=== PATIENT | female | born 1960 | race Caucasian/White ===

== ENCOUNTER 2016-04-26 10:20 | Outpatient (CLI) | payer SELFPAY | END 2016-04-26 10:21 | disposition home or self-care (01) | DX: Z11.1 Encounter for screening for respiratory tuberculosis (principal) ==

== ENCOUNTER 2020-01-24 17:36 | Outpatient (CLI) | payer OTHER ==
--- NOTE | 2020-01-24 17:38 | XRAY Report ---
PROCEDURE: Wrist 4 View LT INDICATIONS: OTHER TENOSYNOVITIS OF WRIST TECHNIQUE: 4 views of the wrist were acquired. COMPARISON: None FINDINGS: Bones: No fractures or dislocations. Mild periarticular osteophyte formation at the first carpal-met acarpal joint. No suspicious bony lesions. Scaphoid view: Negative Soft tissues: No suspicious soft tissue calcifications. IMPRESSION: First carpal metacarpal joint osteoarthritis. No acute fracture. No osseous lesion. If symptoms and/o r clinical suspicion for pathology continue, further assessment with repeat plain films, or advanced imaging (e.g., CT, MRI, or bone scan) is recommended for further assessment. Reviewed by: Payton Biswas MD on 01/24/2020 4:37 PM [facility] Approved by: Payton Biswas MD on 01/24/2020 4:37 PM [facility] Station ID: [id number]
== END 2020-01-24 23:59 | disposition home or self-care (01) ==
LOC: DI.N 17:36
PROVIDERS: ATTEND Family Medicine
DX: M65.832 Other synovitis and tenosynovitis, left forearm (principal); M19.032 Primary osteoarthritis, left wrist

== ENCOUNTER 2023-10-24 15:10 | Outpatient (CLI) | payer BC ==
--- NOTE | 2023-10-26 13:24 | XRAY Report ---
PROCEDURE: Wrist 1-2V LT INDICATIONS: OTH SPECIFIED SPRAIN OF LT WRIST TECHNIQUE: 3 views of the wrist were acquired. COMPARISON: None. FINDINGS: Bones: No fractures or dislocations. No suspicious bony lesions. Moderate first CMC joint space n arrowing with particular osteophyte formation. Soft tissues: No suspicious soft tissue calcifications or masses. IMPRESSION: No acute bony abnormality. Moderate first CMC joint degeneration. Reviewed by: XAVI Griggs on 10/26/2023 1:22 PM PDT Approved by: Xiao Peterson MD on 10/26/2023 1:22 PM PDT Station ID: [id number]
== END 2023-10-24 15:11 | disposition home or self-care (01) ==
LOC: DI 15:10
PROVIDERS: ATTEND Nurse Practitioner
DX: S63.592A Other specified sprain of left wrist, initial encounter (principal); M18.12 Unilateral primary osteoarthritis of first carpometacarpal joint, left hand